=== PATIENT | male | born 1975 | race Caucasian/White ===

== ENCOUNTER 2024-02-02 18:08 | Inpatient (IN) ==
[2024-02-02 20:20] LABS: ABS Eosinophils 0.1 10^3/uL (0.0-0.5); ABS Lymphocytes 1.5 10^3/uL (1.0-4.8); ABS Monocytes 0.7 10^3/uL (0.0-1.1); ABS Neutrophils 5.2 10^3/uL (1.5-7.6); Hematocrit 37.8 % (38-53); Hemoglobin 12.8 g/dL (13.2-16.3); Lymphocyte % 20.1 %; Mean Corpuscular Hgb Conc 33.9 g/dL (31-36); Mean Corpuscular Volume 94.4 fL (80-97); Mean Platelet Volume 6.2 fL (7.5-11.2); Platelet Count 383 10^3/uL (150-450); Red Cell Distribution Width 19.9 % (12-17); White Blood Count 7.6 10^3/uL (3.6-10.2)
[2024-02-02 20:32] LABS: INR 1.01 (0.85-1.14)
[2024-02-02 20:45] LABS: High Sens Troponin Baseline 6 pg/mL (<20)
[2024-02-02 20:53] LABS: ALT 28 U/L (7-52); AST 21 U/L (13-39); Albumin 4.6 g/dL (3.2-5.2); Albumin/Globulin Ratio 1.9 (1-3); Alkaline Phosphatase 57 U/L (35-149); Anion Gap 7 mmol/L (2-16); Blood Urea Nitrogen 20 mg/dL (6-24); CO2 Carbon Dioxide 27 mmol/L (22-32); Calcium 9.5 mg/dL (8.6-10.3); Chloride 106 mmol/L (101-111); Creatine Kinase 303 U/L (10-223); Creatinine, Serum 0.87 mg/dL (0.67-1.17); Globulin 2.4 g/dL (2-4); Glucose 122 mg/dL (70-100); Lipase 32 U/L (11.0-82.0); Potassium 4.4 mmol/L (3.5-5.0); Sodium 140 mmol/L (135-145); Total Bilirubin 0.4 mg/dL (0.2-1.0); eGFR CKD-EPI 107.1 (>60)
[2024-02-02] MEDS: Iohexol 350 (CONTRAST) 500 ML MDV IV ONE (21:18)
[2024-02-02 21:39] LABS: High Sensitivity Troponin 1 Hr 4 pg/mL (<20)
[2024-02-02] MEDS ORDERED: Lorazepam PYXIS KEY PRN (22:27)
[2024-02-02] MEDS: LORazepam 2 mg VIAL 1 ml IV PUSH ONE (22:33)
[2024-02-02 23:17] LABS: Folate > 20.00 ng/mL (5.90-24.80); Vitamin B12 225 pg/mL (180-914)
[2024-02-02] MEDS: Cyanocobalamin INJ 1,000 MCG/ML VIAL 1 ML VIAL IM ONE (23:30)
[2024-02-03 00:29] LABS: Urine Benzodiazepine Screen None Detected (None Detect); Urine Cannabinoids Screen None Detected (None Detect); Urine Opiates Screen None Detected (None Detect)
[2024-02-03 00:38] LABS: Urine Appearance Clear; Urine Bilirubin Negative (Negative); Urine Blood Negative (Negative); Urine Color Light-Yellow; Urine Glucose Negative (Negative); Urine Ketones Negative (Negative); Urine Nitrite Negative (Negative); Urine Protein Negative (Negative); Urine Specific Gravity 1.043 (1.002-1.030); Urine Urobilinogen Negative (Negative); Urine pH 5.5 (5.0-8.0)
[2024-02-03 01:27] LABS: C Reactive Protein 1.24 mg/L (<8.01)
[2024-02-03] MEDS: Enoxaparin 40 MG/0.4 ML SYR SUBCUT SCH (03:48)
[2024-02-03] MEDS: Polyethylene Glycol 3350 17 GM PACKET PO SCH (06:02)
[2024-02-03] MEDS ORDERED: Magnesium Hydroxide LIQ 30 ML UDC PO PRN (08:04)
[2024-02-03] MEDS: Magnesium Hydroxide LIQ 30 ML UDC PO SCH (09:13)
[2024-02-03] MEDS: Cyanocobalamin INJ 1,000 MCG/ML VIAL 1 ML VIAL IM SCH (09:14)
[2024-02-03 10:04] LABS: ABS Lymphocytes 1.3 10^3/uL (1.0-4.8); ABS Monocytes 0.7 10^3/uL (0.0-1.1); ABS Neutrophils 5.3 10^3/uL (1.5-7.6); ABS Nucleated RBC 0.01 10^3/ul; Eosinophil % 0.7 %; Hematocrit 34.1 % (38-53); Hemoglobin 11.7 g/dL (13.2-16.3); Lymphocyte % 17.6 %; Mean Corpuscular Hemoglobin 32.3 pg (27-33); Mean Corpuscular Hgb Conc 34.4 g/dL (31-36); Mean Corpuscular Volume 93.9 fL (80-97); Mean Platelet Volume 6.2 fL (7.5-11.2); Nucleated Red Blood Cells % 0.1 %/100WBC (0.0-0.8); Platelet Count 344 10^3/uL (150-450); Red Blood Count 3.64 10^6/uL (4.06-5.63); Red Cell Distribution Width 19.9 % (12-17); White Blood Count 7.4 10^3/uL (3.6-10.2)
[2024-02-03 10:31] LABS: Calcium 9.1 mg/dL (8.6-10.3); Creatinine, Serum 0.84 mg/dL (0.67-1.17); Potassium 4.4 mmol/L (3.5-5.0); eGFR CKD-EPI 108.2 (>60)
[2024-02-03] MEDS ORDERED: LORazepam 2 mg VIAL 1 ml IV PUSH PRN (14:41)
[2024-02-03] MEDS ORDERED: Lorazepam PYXIS KEY PRN (14:41)
[2024-02-03] MEDS: Senna TAB 8.6 mg TAB PO SCH (20:54)
[2024-02-04 06:09] LABS: ABS Eosinophils 0.1 10^3/uL (0.0-0.5); ABS Lymphocytes 2.1 10^3/uL (1.0-4.8); ABS Monocytes 0.8 10^3/uL (0.0-1.1); ABS Neutrophils 3.7 10^3/uL (1.5-7.6); Hematocrit 35.9 % (38-53); Hemoglobin 11.9 g/dL (13.2-16.3); Lymphocyte % 30.8 %; Mean Corpuscular Hemoglobin 31.6 pg (27-33); Mean Corpuscular Hgb Conc 33.3 g/dL (31-36); Mean Platelet Volume 6.2 fL (7.5-11.2); Nucleated Red Blood Cells % 0.1 %/100WBC (0.0-0.8); Platelet Count 344 10^3/uL (150-450); Red Blood Count 3.78 10^6/uL (4.06-5.63); Red Cell Distribution Width 19.6 % (12-17); White Blood Count 6.8 10^3/uL (3.6-10.2)
[2024-02-05 06:56] LABS: ABS Eosinophils 0.1 10^3/uL (0.0-0.5); ABS Lymphocytes 1.6 10^3/uL (1.0-4.8); ABS Monocytes 0.7 10^3/uL (0.0-1.1); ABS Neutrophils 4.1 10^3/uL (1.5-7.6); Eosinophil % 1.9 %; Hematocrit 34.7 % (38-53); Hemoglobin 11.7 g/dL (13.2-16.3); Lymphocyte % 24.7 %; Mean Corpuscular Hemoglobin 32.1 pg (27-33); Mean Corpuscular Hgb Conc 33.7 g/dL (31-36); Mean Corpuscular Volume 95.3 fL (80-97); Mean Platelet Volume 6.5 fL (7.5-11.2); Platelet Count 338 10^3/uL (150-450); Red Blood Count 3.64 10^6/uL (4.06-5.63); Red Cell Distribution Width 19.5 % (12-17); White Blood Count 6.6 10^3/uL (3.6-10.2)
[2024-02-05] MEDS ORDERED: LORazepam 2 mg VIAL 1 ml IV PUSH PRN (11:15)
[2024-02-05] MEDS ORDERED: COVID VAC 24-25 (12+) (Moderna) Syringe 0.5 mL IM ONE (12:15)
[2024-02-05] MEDS: Influenza Vaccine *TRI* 2024-25* 0.5 ML SYRINGE IM ONE (12:46)
[2024-02-06] MEDS ORDERED: COVID VAC 24-25 (12+) (Moderna) Syringe 0.5 mL IM ONE (08:00)
[2024-02-07 06:07] LABS: ABS Basophils 0.1 10^3/uL (0.0-0.1); ABS Eosinophils 0.2 10^3/uL (0.0-0.5); ABS Lymphocytes 1.8 10^3/uL (1.0-4.8); ABS Monocytes 0.7 10^3/uL (0.0-1.1); ABS Neutrophils 4.3 10^3/uL (1.5-7.6); ABS Nucleated RBC 0.01 10^3/ul; Eosinophil % 2.4 %; Hematocrit 36.7 % (38-53); Hemoglobin 12.4 g/dL (13.2-16.3); Lymphocyte % 26.1 %; Mean Corpuscular Hemoglobin 32.1 pg (27-33); Mean Corpuscular Hgb Conc 33.8 g/dL (31-36); Mean Platelet Volume 6.7 fL (7.5-11.2); Nucleated Red Blood Cells % 0.1 %/100WBC (0.0-0.8); Platelet Count 340 10^3/uL (150-450); Red Blood Count 3.87 10^6/uL (4.06-5.63)
[2024-02-07 06:34] LABS: Anion Gap 10 mmol/L (2-16); Blood Urea Nitrogen 20 mg/dL (6-24); CO2 Carbon Dioxide 26 mmol/L (22-32); Calcium 9.3 mg/dL (8.6-10.3); Chloride 102 mmol/L (101-111); Creatinine, Serum 0.85 mg/dL (0.67-1.17); Glucose 94 mg/dL (70-100); Sodium 138 mmol/L (135-145); eGFR CKD-EPI 107.9 (>60)
[2024-02-07 06:52] LABS: Potassium, Whole Blood 4.6 mmol/L (3.4-4.5)
[2024-02-07] MEDS: COVID VAC 24-25 (12+) (Moderna) Syringe 0.5 mL IM ONE (09:24)
[2024-02-07 09:26] LABS: Methemoglobin, B 0.8 % (0.0-1.5)
[2024-02-08 08:09] LABS: ABS Eosinophils 0.1 10^3/uL (0.0-0.5); ABS Lymphocytes 1.5 10^3/uL (1.0-4.8); ABS Monocytes 0.7 10^3/uL (0.0-1.1); ABS Neutrophils 5.2 10^3/uL (1.5-7.6); Eosinophil % 1.9 %; Hematocrit 38.7 % (38-53); Hemoglobin 12.9 g/dL (13.2-16.3); Lymphocyte % 19.3 %; Mean Corpuscular Hgb Conc 33.4 g/dL (31-36); Mean Corpuscular Volume 95.8 fL (80-97); Mean Platelet Volume 6.5 fL (7.5-11.2); Nucleated Red Blood Cells % 0.1 %/100WBC (0.0-0.8); Platelet Count 344 10^3/uL (150-450); Red Blood Count 4.04 10^6/uL (4.06-5.63); Red Cell Distribution Width 19.6 % (12-17); White Blood Count 7.5 10^3/uL (3.6-10.2)
[2024-02-08 08:27] LABS: Calcium 9.4 mg/dL (8.6-10.3); Creatinine, Serum 1.03 mg/dL (0.67-1.17); Magnesium 2.2 mg/dL (1.9-2.7); Potassium 4.5 mmol/L (3.5-5.0); eGFR CKD-EPI 90.2 (>60)
[2024-02-08] MEDS: Simethicone SUSP ORALSYR 66.66 MG/ML PO PRN (14:42)
[2024-02-08] MEDS: LORazepam 2 mg VIAL 1 ml IV PUSH ONE (20:03)
[2024-02-08] MEDS: Gadoteridol (CONTRAST) 279.3 MG/ML 10 ML IV ONE (20:52)
[2024-02-09 07:01] LABS: ABS Eosinophils 0.1 10^3/uL (0.0-0.5); ABS Lymphocytes 1.7 10^3/uL (1.0-4.8); ABS Monocytes 0.7 10^3/uL (0.0-1.1); ABS Neutrophils 3.5 10^3/uL (1.5-7.6); Eosinophil % 2.1 %; Hematocrit 35.9 % (38-53); Hemoglobin 12.1 g/dL (13.2-16.3); Lymphocyte % 28.1 %; Mean Corpuscular Hemoglobin 32.1 pg (27-33); Mean Corpuscular Hgb Conc 33.7 g/dL (31-36); Mean Corpuscular Volume 95.4 fL (80-97); Mean Platelet Volume 6.8 fL (7.5-11.2); Platelet Count 314 10^3/uL (150-450); Red Blood Count 3.77 10^6/uL (4.06-5.63); Red Cell Distribution Width 19.4 % (12-17); White Blood Count 6.1 10^3/uL (3.6-10.2)
[2024-02-09 07:09] LABS: Calcium 8.8 mg/dL (8.6-10.3); Creatinine, Serum 0.84 mg/dL (0.67-1.17); Potassium 4.2 mmol/L (3.5-5.0); eGFR CKD-EPI 108.2 (>60)
[2024-02-09] MEDS ORDERED: Magnesium Hydroxide LIQ 30 ML UDC PO PRN (09:52)
[2024-02-09] MEDS ORDERED: Lorazepam PYXIS KEY PRN (20:41)
[2024-02-09] MEDS: LORazepam 2 mg VIAL 1 ml IV PUSH ONE ×2 (21:52→22:43)
[2024-02-09] MEDS: Gadoteridol (CONTRAST) 279.3 MG/ML 10 ML IV ONE (23:19)
[2024-02-10 06:27] LABS: ABS Eosinophils 0.1 10^3/uL (0.0-0.5); ABS Lymphocytes 1.8 10^3/uL (1.0-4.8); ABS Monocytes 0.7 10^3/uL (0.0-1.1); ABS Neutrophils 3.5 10^3/uL (1.5-7.6); ABS Nucleated RBC 0.01 10^3/ul; Eosinophil % 2.4 %; Hematocrit 36.1 % (38-53); Lymphocyte % 28.7 %; Mean Corpuscular Hemoglobin 31.6 pg (27-33); Mean Corpuscular Hgb Conc 33.1 g/dL (31-36); Mean Corpuscular Volume 95.4 fL (80-97); Mean Platelet Volume 6.6 fL (7.5-11.2); Nucleated Red Blood Cells % 0.1 %/100WBC (0.0-0.8); Platelet Count 294 10^3/uL (150-450); Red Blood Count 3.78 10^6/uL (4.06-5.63); Red Cell Distribution Width 18.5 % (12-17); White Blood Count 6.2 10^3/uL (3.6-10.2)
[2024-02-10 06:54] LABS: Calcium 8.8 mg/dL (8.6-10.3); Creatinine, Serum 0.85 mg/dL (0.67-1.17); Magnesium 2.1 mg/dL (1.9-2.7); Potassium 4.2 mmol/L (3.5-5.0); eGFR CKD-EPI 107.9 (>60)
[2024-02-10 13:24] VITALS: BP 123/69
== END 2024-02-10 14:00 | DRG 776 ==
LOC: EDHOLD 18:08 → ED 18:08 → SUATTDRO 02-03 00:58 → MED 02-03 02:25 → SUATTDRO 02-04 14:00
PROVIDERS: ADMIT Internal Medicine; ATTEND Internal Medicine

== ENCOUNTER 2024-02-10 11:39 | Inpatient (IN) ==
[2024-02-10] MEDS ORDERED: Senna TAB 8.6 mg TAB PO PRN (16:30)
[2024-02-10] MEDS: Magnesium Hydroxide LIQ 30 ML UDC PO PRN (19:02)
[2024-02-10] MEDS: Senna TAB 8.6 mg TAB PO SCH (20:09)
[2024-02-10] MEDS: Polyethylene Glycol 3350 17 GM PACKET PO SCH (20:09)
[2024-02-11 06:55] LABS: ABS Eosinophils 0.2 10^3/uL (0.0-0.5); ABS Monocytes 0.7 10^3/uL (0.0-1.1); ABS Neutrophils 3.8 10^3/uL (1.5-7.6); ABS Nucleated RBC 0.01 10^3/ul; Eosinophil % 2.8 %; Hematocrit 36.9 % (38-53); Hemoglobin 12.4 g/dL (13.2-16.3); Lymphocyte % 29.3 %; Mean Corpuscular Hemoglobin 32.2 pg (27-33); Mean Corpuscular Hgb Conc 33.7 g/dL (31-36); Mean Corpuscular Volume 95.4 fL (80-97); Mean Platelet Volume 6.6 fL (7.5-11.2); Nucleated Red Blood Cells % 0.1 %/100WBC (0.0-0.8); Platelet Count 307 10^3/uL (150-450); Red Blood Count 3.87 10^6/uL (4.06-5.63); Red Cell Distribution Width 18.3 % (12-17); White Blood Count 6.7 10^3/uL (3.6-10.2)
[2024-02-11 07:12] LABS: Albumin/Globulin Ratio 1.8 (1-3); Calcium 9.1 mg/dL (8.6-10.3); Creatinine, Serum 0.9 mg/dL (0.67-1.17); Globulin 2.2 g/dL (2-4); Potassium 4.5 mmol/L (3.5-5.0); Total Bilirubin 0.4 mg/dL (0.2-1.0); Total Protein 6.2 g/dL (6.4-8.9)
[2024-02-11] MEDS: Enoxaparin 40 MG/0.4 ML SYR SUBCUT SCH (08:25)
[2024-02-11] MEDS: Ondansetron ODT 4 mg TAB 4 MG TAB SL PRN (11:17)
[2024-02-11] MEDS: Pneumococcal 20-Valent Conj 0.5 ML SYR Vaccine IM ONE (11:18)
[2024-02-11] MEDS: Magnesium CITRATE LIQ 300 ML BTL PO ONE (12:15)
[2024-02-15] MEDS: Cyanocobalamin INJ 1,000 MCG/ML VIAL 1 ML VIAL IM SCH (13:11)
[2024-02-18 06:27] LABS: ABS Basophils 0.1 10^3/uL (0.0-0.1); ABS Eosinophils 0.2 10^3/uL (0.0-0.5); ABS Lymphocytes 2.2 10^3/uL (1.0-4.8); Eosinophil % 3.6 %; Hematocrit 37.3 % (38-53); Hemoglobin 12.8 g/dL (13.2-16.3); Lymphocyte % 34.2 %; Mean Corpuscular Hemoglobin 31.9 pg (27-33); Mean Corpuscular Hgb Conc 34.3 g/dL (31-36); Mean Platelet Volume 6.5 fL (7.5-11.2); Platelet Count 288 10^3/uL (150-450); Red Blood Count 4.01 10^6/uL (4.06-5.63); White Blood Count 6.5 10^3/uL (3.6-10.2)
[2024-02-18 06:46] LABS: Albumin 3.9 g/dL (3.2-5.2); Albumin/Globulin Ratio 1.8 (1-3); Calcium 9.2 mg/dL (8.6-10.3); Creatinine, Serum 0.89 mg/dL (0.67-1.17); Globulin 2.2 g/dL (2-4); Potassium 4.6 mmol/L (3.5-5.0); Total Bilirubin 0.3 mg/dL (0.2-1.0); Total Protein 6.1 g/dL (6.4-8.9); eGFR CKD-EPI 106.4 (>60)
[2024-02-19] MEDS: CHLORDIAZEPOXIDE PO SCH (12:21)
[2024-02-19] MEDS: CLIDINIUM PO SCH (12:21)
[2024-02-22 06:32] VITALS: BP 133/83
== END 2024-02-22 17:15 | disposition home or self-care (01) | DRG 48 ==
LOC: PMRU 15:00
PROVIDERS: ADMIT Physical Medicine & Rehabilitation; ATTEND Physical Medicine & Rehabilitation